=== PATIENT | female | born 1985 ===

== ENCOUNTER 2024-03-04 22:07 | Outpatient (REF) | payer OTHER, SELFPAY ==
[2024-03-07 07:09] LABS: Candida species Positive (Negative); Gardnerella vaginalis Negative (Negative); Trichomonas vaginalis Negative (Negative)
== END 2024-03-04 22:08 | disposition home or self-care (01) ==
LOC: LAB 22:07
PROVIDERS: Visit Provider Nurse Practitioner
DX: Z12.4 Encounter for screening for malignant neoplasm of cervix (principal); Z11.3 Encounter for screening for infections with a predominantly sexual mode of transmission
CPT/HCPCS: 36415; 87480; 87491; 87510; 87591; 87624; 87660; G0145